=== PATIENT | female | born 1985 | race Caucasian/White ===

== ENCOUNTER 2017-10-25 18:42 | Emergency (ER) | payer OTHER ==
[~2017-10-25] VITALS: Ht 157.5 cm; Wt 73.5 kg
[2017-10-25] MEDS ORDERED: OBSTETRIX DHA1 EACH PO (18:48)
== END 2017-10-26 00:21 | disposition home or self-care (01) ==
LOC: ER 18:42
DX: O20.8 Other hemorrhage in early pregnancy (principal); Z34.81 Encounter for supervision of other normal pregnancy, first trimester